=== PATIENT | female | born 1995 | race Caucasian/White ===

== ENCOUNTER 2016-11-20 11:22 | Outpatient (CLI) ==
[2015-09-12 08:15] VITALS: BMI 24.1
[2016-11-20 13:28] LABS: FLU INTERNAL QC INTERNAL QC VALID; RAPID FLU A NEGATIVE (NEGATIVE); RAPID FLU B NEGATIVE (NEGATIVE)
== END 2016-11-20 11:23 | disposition home or self-care (01) ==
LOC: LAB 11:22
PROVIDERS: ATTEND Nurse Practitioner Family
DX: J02.9 Acute pharyngitis, unspecified (principal); R52 Pain, unspecified
CPT/HCPCS: 87651; 87804; 87880

== ENCOUNTER 2017-03-21 09:39 | Outpatient (CLI) ==
[2015-09-12 08:15] VITALS: BMI 24.1
[2017-03-21 10:07] LABS: BASOPHILS % (AUTO) 0.6 % (0.0-3.0); EOSINOPHILS # (AUTO) 0.1 K/ul (0.0-0.7); EOSINOPHILS % (AUTO) 1.9 % (0.0-7.0); HEMOGLOBIN 11.9 g/dl (12.0-16.0); IMMATURE GRANULOCYTE % (AUTO) 0.4 % (0.0-5.0); LYMPHOCYTES # (AUTO) 1.8 K/uL (0.60-3.4); LYMPHOCYTES % (AUTO) 26.9 (10.0-50.0); MEAN CORPUSCULAR HEMOGLOBIN 30.7 pg (27.0-31.0); MEAN CORPUSCULAR VOLUME 90.4 fl (81.0-99.0); MONOCYTES # (AUTO) 0.4 K/uL (0.4-2.0); MONOCYTES % (AUTO) 5.6 (0-10); NEUTROPHILS # (AUTO) 4.4 K/ul (2.0-6.9); NEUTROPHILS % (AUTO) 64.6; PLATELET COUNT 293 10^3/uL (140-440); RED BLOOD COUNT 3.87 10^6/ul (4.20-5.40); WHITE BLOOD COUNT 6.77 K/ul (4.6-10.2)
[2017-03-21 10:13] LABS: SERUM PREGNANCY INTERNAL QC INTERNAL QC VALID
[2017-03-21 10:19] LABS: ALBUMIN 4.2 g/dL (3.4-5.0); ALBUMIN/GLOBULIN RATIO 1.14; ANION GAP 14.4; BILIRUBIN,TOTAL 0.48 mg/dL (0.00-1.20); BUN/CREATININE RATIO 12.98; CALCIUM 9.4 mg/dL (8.2-10.2); CHOL/HDL RATIO 3.7 (4.5-5.5); CREATININE 0.77 mg/dL (0.60-1.30); POTASSIUM 4.4 mmol/L (3.5-5.10); TOTAL PROTEIN 7.9 g/dL (6.4-8.2)
== END 2017-03-21 09:40 | disposition home or self-care (01) ==
LOC: LAB 09:39
DX: Z51.81 Encounter for therapeutic drug level monitoring (principal); Z79.899 Other long term (current) drug therapy
CPT/HCPCS: 36415; 80053; 80061; 84703; 85025

== ENCOUNTER 2017-11-15 01:24 | Emergency (ER) ==
[2017-11-15 01:25] VITALS: BMI 24.1
[2017-11-15 01:27] VITALS: BP 132/85; TEMP 98.2
[2017-11-15] MEDS ORDERED: ZOFRAN 4 MG/2 ML IM STA (01:39)
[2017-11-15] MEDS ORDERED: DEMEROL 25 MG/ML VIAL IM STA (01:39)
--- NOTE | 2017-11-15 01:42 | ED.PDOC ---
General ED Provider: Dr. GEMA DALY Chief Complaint: Abdominal Pain Stated Complaint: Started with abdominal pain at 7;30 pm, sharp type of pain, nausea, no vomiting. Time Seen by Physician: 01:40 Mode of Arrival: Walk-In Information Source: Patient Primary Care Provider: ELIAN LAGUNAS Nursing and Triage Documentation Reviewed and Agree: Yes Reviewed sepsis parameters & appropriate labs ordered?: No System Inflammatory Response Syndrome: Not Applicable Sepsis Protocol: For patient's 13 years and over: Temp is 96.8 and below OR 101 and greater Pulse >90 BPM Resp >20/minute Acutely Altered Mental Status Are patient's symptoms suggestive of a new infection, such as: -Pneumonia -Skin, Soft Tissue -Endocarditis -UTI -Bone, Joint Infection -Implantable Device -Acute Abdominal Infection -Wound Infection -Meningitis -Blood Stream Catheter Infection -Unknown GI Complaint Exam - Abdominal Pain Complaint/Exam Onset: Sudden Symptoms Are: Still present Timing: Constant Initial Severity: Severe Current Severity: Severe Location of Pain: Epigastric (umbilical) Character: Reports: Sharp, Aching Aggravating: Reports: Movement Alleviating: Reports: None Associated Signs and Symptoms: Reports: Nausea. Denies: Diaphoresis, Fever, Cough, Chest pain, Dizziness, Back pain, Constipation, Blood in stool, Dysuria, Urinary frequency, Decreased urine output, Decreased appetite, Vaginal bleeding , Vaginal discharge, Vomiting, Diarrhea, Sore throat, Decreased activity AAA Risk Factors: Reports: None Cardiac Risk Factors: Reports: None Ectopic Risk Factors: Reports: None Ovarian Torsion Risk Factors: Reports: None Surgical Obstruction Risk Factors: Reports: None Related Surgical History: Reports: None Abdominal Findings: Absent: Pulsatile mass, Abdominal distention, Unequal femoral pulses, Rebound tenderness Differential Diagnoses: Gastroenteritis, PUD Review of Systems - Review Of Systems Constitutional: Reports: No symptoms Eyes: Reports: No symptoms Ears, Nose, Mouth, Throat: Reports: No symptoms Respiratory: Reports: No symptoms Cardiac: Reports: No symptoms GI: Reports: Abdominal pain : Reports: No symptoms Musculoskeletal: Reports: No symptoms Skin: Reports: No symptoms Neurological: Reports: No symptoms Endocrine: Reports: No symptoms Hematologic/Lymphatic: Reports: No symptoms All Other Systems: Reviewed and Negative Past Medical History - Past Medical History Previously Healthy: Yes Endocrine: Reports: None Cardiovascular: Reports: None Respiratory: Reports: None Hematological: Reports: None Gastrointestinal: Reports: None Genitourinary: Reports: None Neuro/Psych: Reports: None Musculoskeletal: Reports: None Cancer: Reports: None Last Menstrual Period: 1 MONTH AGO - Surgical History General Surgical History: Reports: Unknown - Family History Family History: Reports: Unknown - Social History Smoking Status: Never smoker Hx Substance Use: No Alcohol Screening: None - Immunizations Tetanus Shot up to Date: Yes Physical Exam - Physical Exam Appearance: Ill-appearing Eyes: CE, EOMI, Conjunctiva clear ENT: Ears normal, Nose normal, Oropharynx normal Respiratory: Airway patent, Breath sounds clear, Breath sounds equal, Respirations nonlabored Cardiovascular: RRR, Pulses normal, No rub, No murmur GI/: Tender, Bowel sounds hypoactive Musculoskeletal: Normal strength, ROM intact, No edema, No calf tenderness Skin: Warm, Dry, Normal color Neurological: Sensation intact, Motor intact, Reflexes intact, Cranial nerves intact, Alert, Oriented Psychiatric: Affect appropriate, Mood appropriate Interpretation - Radiology Interpretation Radiology Interpretation By: Radiologist Radiology Results: Negative Re-Evaluation - Re-Evaluation Time of Re-Evaluation: 05:34 Status: Improved Vital Signs Stable: Yes Appearance: NAD Lungs: Clear Critical Care Note - Critical Care Note Total Time (mins): 15 Course - Course Hematology/Chemistry: 11/15/17 01:45 11/15/17 01:45 Orders, Labs, Meds: Lab Review 11/15/17 11/15/17 11/15/17 01:45 01:45 01:45 WBC 17.96 H RBC 3.95 L Hgb 12.5 Hct 35.9 L MCV 90.9 MCH 31.6 H MCHC 34.8 RDW Coeff of Jazlyn 12.1 Plt Count 305 Immature Gran % (Auto) 0.4 Neut % (Auto) 75.0 Lymph % (Auto) 17.1 [place] % (Auto) 5.3 Eos % (Auto) 1.8 Baso % (Auto) 0.4 Immature Gran # (Auto) 0.1 Neut # 13.5 H Lymph # 3.1 [place] # 1.0 Eos # 0.3 Baso # 0.1 Sodium 139 Potassium 3.4 L Chloride 101 Carbon Dioxide 28 Anion Gap 13.4 BUN 18 Creatinine 0.87 Estimated GFR (MDRD) 81.00 BUN/Creatinine Ratio 20.68 Glucose 111 H Calcium 10.4 H Total Bilirubin 0.4 AST 27 ALT 15 Alkaline Phosphatase 56 Total Protein 8.9 H Albumin 4.5 Globulin 4.4 Albumin/Globulin Ratio 1.02 Amylase 244 H Lipase 18 Urine Color Yellow Urine Clarity Slightly Urine pH 7.0 Ur Specific [place] 1.020 Urine Protein Negative Urine Glucose (UA) Negative Urine Ketones Negative Urine Blood Trace-lysed Urine Nitrite Negative Urine Bilirubin Negative Urine Urobilinogen 0.2 Ur Leukocyte Esterase 2+ Urine Microscopic RBC 2-5 Urine Microscopic WBC 5-10 Ur Squamous Epith Cells 50-100 Urine Test 11/15/17 01:45 WBC RBC Hgb Hct MCV MCH MCHC RDW Coeff of Jazlyn Plt Count Immature Gran % (Auto) Neut % (Auto) Lymph % (Auto) [place] % (Auto) Eos % (Auto) Baso % (Auto) Immature Gran # (Auto) Neut # Lymph # [place] # Eos # Baso # Sodium Potassium Chloride Carbon Dioxide Anion Gap BUN Creatinine Estimated GFR (MDRD) BUN/Creatinine Ratio Glucose Calcium Total Bilirubin AST ALT Alkaline Phosphatase Total Protein Albumin Globulin Albumin/Globulin Ratio Amylase Lipase Urine Color Urine Clarity Urine pH Ur Specific [place] Urine Protein Urine Glucose (UA) Urine Ketones Urine Blood Urine Nitrite Urine Bilirubin Urine Urobilinogen Ur Leukocyte Esterase Urine Microscopic RBC Urine Microscopic WBC Ur Squamous Epith Cells Urine Test Negative Orders Category Date Time Status INSERT SALINE LOCK ONCE CARE 11/15/17 04:04 Active NPO REMINDER: IMAGING ONCE CARE 11/15/17 04:04 Completed AMYLASE Stat LAB 11/15/17 01:45 Completed CBC W/ AUTO DIFF Stat LAB 11/15/17 01:45 Completed COMPREHENSIVE METABOLIC PANEL Stat LAB 11/15/17 01:45 Completed LIPASE Stat LAB 11/15/17 01:45 Completed URINALYSIS C & S IF INDICATED Stat LAB 11/15/17 01:45 Completed URINE CULTURE Routine LAB 11/15/17 01:45 Received URINE Stat LAB 11/15/17 01:45 Completed Hydromorphone HCl/Pf [Dilaudid 2 mg/ml Syringe] MEDS 11/15/17 04:05 Discontinued 2 mg IVP ONCE STA Meperidine HCl/Pf [Demerol 25 mg/ml Vial] MEDS 11/15/17 01:39 Discontinued 25 mg IM ONCE STA Ondansetron HCl/Pf [Zofran 4 mg/2 ml] MEDS 11/15/17 01:39 Discontinued 4 mg IM ONCE STA Sodium Chloride 0.9% [Sodium Chloride] 1,000 ml MEDS 11/15/17 04:04 Active IV 100 mls/hr CT ABDOMEN/PELVIS W CONTRAST Stat RADS 11/15/17 04:[address] ABDOMEN/PELVIS WO CONTRAST Stat RADS 11/15/17 01:39 Completed Medications Generic Name Dose Route Start Last Admin Trade Name Rafat PRN Reason Stop Dose Admin Sodium Chloride 1,000 mls @ 100 mls/hr 11/15/17 04:04 11/15/17 04:24 Sodium Chloride IV 11/15/17 14:03 100 mls/hr .Q10H STA Administration Discontinued Medications Generic Name Dose Route Start Last Admin Trade Name Rafat PRN Reason Stop Dose Admin Hydromorphone HCl 2 mg 11/15/17 04:05 11/15/17 04:24 Dilaudid 2 Mg/Ml Syringe IVP 11/15/17 04:06 2 mg ONCE STA Administration Meperidine HCl 25 mg 11/15/17 01:39 11/15/17 01:53 Demerol 25 Mg/Ml Vial IM 11/15/17 01:40 25 mg ONCE STA Administration Ondansetron HCl 4 mg 11/15/17 01:39 11/15/17 01:53 Zofran 4 Mg/2 Ml IM 11/15/17 01:40 4 mg ONCE STA Administration Vital Signs: Temp Pulse Resp BP Pulse Ox 11/15/17 01:25 98.2 F 77 14 132/85 98 Departure - Departure Time of Disposition: 05:32 Disposition: HOME SELF-CARE Discharge Problem: Abdominal pain Pancreatitis Qualifiers: Chronicity: acute Pancreatitis type: idiopathic Acute pancreatitis complication : no infection or necrosis Qualified Code(s): K85.00 - Idiopathic acute pancreatitis without necrosis or infection Instructions: Pancreatitis (ED) Condition: Stable Pt referred to PMD for follow-up: Yes IPMP verified?: No Additional Instructions: refused to get admitted, INCREASE HYDRATION, LIQUID DIET FOR 2 DAYS, START SOFT DIET AFTER 2 DAYS IF NOT BETTER COME BACK Prescriptions: Nitrofurantoin Macrocrystal [Macrodantin] 100 mg PO BID #14 capsule Allergies/Adverse Reactions: Allergies No Known Allergies Allergy (Unverified 09/12/15 08:17) Home Medications: Ambulatory Orders Norethindrone [Ortho Micronor] 0.35 mg PO DAILY 09/12/15 Nitrofurantoin Macrocrystal [Macrodantin] 100 mg PO BID #14 capsule 11/15/17 Disposition Discussed With: Patient, Family
--- NOTE | 2017-11-15 02:57 | CT ---
EXAM: CT of the abdomen and pelvis without contrast. HISTORY: Abdominal pain. PROCEDURE: Contiguous axial CT images of the abdomen and pelvis without contrast with coronal and sa gittal reformats. FINDINGS: The liver, gallbladder, pancreas, spleen, adrenal glands and kidneys are normal in appearan ce. The abdominal aorta is normal in appearance. The appendix is not definitely visualized. The othe r visualized loops of bowel are normal in appearance. No free fluid or free air in the abdomen or pel vis. The bladder is adequately filled with no abnormality identified. The uterus is unremarkable. There is minimal subcutaneous air in the left flank consistent with an injection site. The bones are unremarkable. Impression: The appendix is not definitely visualized. Appendicitis cannot be excluded. Subcutaneous injection site as described.
[2017-11-15] MEDS ORDERED: DILAUDID 2 MG/ML SYRINGE IM STA (04:03)
[2017-11-15] MEDS ORDERED: SODIUM CHLORIDE 1,000 ML IV STA (04:04)
[2017-11-15] MEDS ORDERED: DILAUDID 2 MG/ML SYRINGE IVP STA (04:05)
[2017-11-15] MEDS ORDERED: VANCOMYCIN 1,000 MG in SODIUM CHLORIDE 200 ML IV STA (04:05)
[2017-11-15] MEDS ORDERED: ROCEPHIN 1 GM in SODIUM CHLORIDE 50 ML IV STA (04:05)
--- NOTE | 2017-11-15 05:18 | CT ---
EXAM: CT of the abdomen and pelvis with IV contrast. HISTORY: Abdominal pain. PROCEDURE: After the intravenous injection of contrast contiguous axial CT images of the abdomen and pelvis were obtained with multiplanar and 3-D reformats. FINDINGS: Comparison made with CT of 11/15/2017 at 0229. The liver, gallbladder, pancreas, spleen, ad renal glands and kidneys are normal in appearance. The abdominal aorta is normal in appearance. The appendix is not definitely visualized secondary to adjacent bowel. The other visualized loops of juan wel are normal in appearance. No free fluid or free air in the abdomen or pelvis. The bladder is ad equately filled with no abnormality identified. The uterus is unremarkable. There is minimal subcut aneous air in the left flank consistent with an injection site. The bones are unremarkable. Impression: The appendix is not definitely visualized as described. Appendicitis cannot be excluded. Recommend surgical consult if clinically indicated. Subcutaneous injection site as described.
== END 2017-11-15 05:45 | disposition home or self-care (01) ==
LOC: ED 01:24
DX: K85.00 Idiopathic acute pancreatitis without necrosis or infection (principal)
CPT/HCPCS: 36415; 80053; 81001; 81025; 82150; 83690; 85025; 87086; 96372; 99283